=== PATIENT | female | born 1940 | race Caucasian/White ===

== ENCOUNTER 2016-09-06 17:09 | Inpatient (IN) | payer OTHER, MEDICARE ==
[~2016-09-06] VITALS: Ht 167.6 cm; Wt 49.0 kg
--- NOTE | ~2016-09-06 | EKG ---
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: Jason HDZ : 1940 Requested By: Sheldon Wheatley Order Number: [id number] MD: Chidi Reyes Measurements Intervals [place] Rate: 67 P: 75 GA: 167 QRS: 35 QRSD: 81 T: 70 QT: 424 QTc: 448 Interpretive Statements Sinus rhythm Probable anterior infarct, old Compared to ECG 09/09/2012 15:59:30 Myocardial infarct finding now present T-wave abnormality no longer present Electronically Signed On 09-07-2016 14:43:18 CDT by Chidi Reyes [email or web address] <ELECTRONICALLY SIGNED> By: Chidi Reyes MD 09/07/16 1443 1434 1434 Chidi Reyes MD /EPI
--- NOTE | ~2016-09-06 | 2DMMODE ---
[facility] [address] [facility] [place] [address] 2 D/M-MODE ECHOCARDIOGRAM Name: ENREYDA AZUL Room #: 212-P [facility] IN M.R.#: [id number] Admission: 09/06/16 Attend Phys: Sheldon Wheatley, Discharge: Date of : 38 Date of Service: 09/07/16 1016 Report #: [id number] THIS REPORT FOR: //name// APPROVED REPORT Study performed: 09/07/2016 07:16:20 EXAM: Comprehensive 2D, Doppler, and color-flow Echocardiogram Patient Location: Echo lab Room #: [facility] Status: routine Other Information Study Quality: Good Risk Factors: Cardiac Risk Factors: HTN Indications Hypertension/HDD 2D Dimensions RVDd: 35.69 mm LVEF(%): 62.84 (>50%) IVSd: 12.18 (7-11mm) LVOT Diam: 16.52 (18-24mm) LVDd: 40.35 mm PWd: 13.11 (7-11mm) Ascending Ao: 25.06 (22-36mm) LVDs: 26.81 (25-40mm) Aortic Root: 25.35 mm IVC: 22.00 mm Jones's LVEF: 62.84 % Volumes Left Atrial Volume (Systole) Single Plane 4CH: 48.63 mL Single Plane 2CH: 65.71 mL LA ESV Index: 40.00 mL/m2 Aortic Valve AoV Peak Jaycob.: 2.71 m/s AO Peak Gr.: 29.46 mmHg LVOT Max P.37 mmHg AO Mean Gr.: 18.95 mmHg LVOT Mean P.93 mmHg AO V2 Mean: 2.10 m/s LVOT Max V: 1.16 m/s AO V2 VTI: 72.63 cm LVOT Mean V: 0.81 m/s TIMA (VTI): 0.94 cm2 LVOT V1 VTI: 31.77 cm TIMA Vmax: 0.92 cm2 AI Vmax: 4.32 m/s SV (LVOT): 68.11 mL AI Rawlins: 2.15 m/s2 [facility] [place] [address] 2 D/M-MODE ECHOCARDIOGRAM Name: NEREYDA AZUL Room #: 212-P [facility] IN .R.#: [id number] Admission: 09/06/16 Attend Phys: Sheldon Wheatley, Discharge: Date of : 38 Date of Service: 09/07/16 1016 Report #: [id number] AI PHT: 581.86 ms Mitral Valve E/A Ratio: 1.0 MV Decel. Time: 263.95 ms MV E Max Jaycob.: 1.21 m/s MV A Jaycob.: 1.18 m/s MV PHT: 76.54 ms IVRT: 96.89 ms Pulmonary Valve PV Peak Jaycob.: 0.97 m/s PV Peak Gr.: 3.80 mmHg Pulmonary Vein P Vein S: 0.50 m/s P Vein A: 0.26 m/s P Vein D: 0.33 m/s P Vein A Dur.: 92.3 msec P Vein S/D Ratio: 1.52 Tricuspid Valve TR Peak Jaycob.: 2.56 m/s RAP Estimate: 10.00 mmHg TR Peak Gr.: 26.29 mmHg PA Pressure: 36.00 mmHg Left Ventricle The left ventricle is normal size. There is normal LV segmental wall motion. Mild concentric left ventricular hypertrophy. The left ventricular systolic function is normal. The left ventricular ejection fraction is within the normal range. LVEF is 60-65%. Grade I diastolic dysfunction Right Ventricle The right ventricle is normal size. The right ventricular systolic function is normal. Atria Left atrium is dilated. The right atrium size is normal. Aortic Valve Aortic valve is calcified. Mild aortic regurgitation. Moderate aortic stenosis with a maximum pressure gradient of 30 mmHg and mean pressure gradient of 19 mmHg. Mitral Valve Moderate mitral annular calcification Mild mitral regurgitation. No evidence of mitral valve stenosis. [facility] [address] [place] [address] 2 D/M-MODE ECHOCARDIOGRAM Name: NEREYDA AZUL Room #: 212-P [facility] IN M.R.#: [id number] Admission: 09/06/16 Attend Phys: Sheldon Wheatley, Discharge: Date of : 38 Date of Service: 09/07/16 1016 Report #: [id number] Tricuspid Valve The tricuspid valve is normal in structure. There is mild tricuspid regurgitation. The right atrial pressure is estimated at 10 mmHg. There is mild pulmonary hypertension. Pulmonic Valve The pulmonary valve is normal in structure. Trace pulmonic regurgitation. Great Vessels The aortic root is normal in size. IVC is dilated and collapses >50% with inspiration. Pericardium There is no pericardial effusion. <Conclusion> There is normal LV segmental wall motion. Mild concentric left ventricular hypertrophy. LVEF is 60-65%. Grade I diastolic dysfunction Left atrium is dilated. Aortic valve is calcified. Mild aortic regurgitation. Moderate aortic stenosis with a maximum pressure gradient of 30 mmHg and mean pressure gradient of 19 mmHg. Moderate mitral annular calcification. Mild mitral regurgitation Pulmonary artery pressure of 30-35mmHg There is no pericardial effusion. <ELECTRONICALLY SIGNED> By: Wolf Santos MD, FACC 09/07/16 1016 1016 1016 Wolf Santos MD, FACC /INF
[~2016-09-06 17:09] MED LIST: ADCIRCA20 MG PO; ALBUTEROL INH INH; AMBIEN 5 MG TABL5 M1 PO; AMBIEN 5 MG TABL5 MG PO; AMLODIPINE BESYL5 MG PO; ANUCORT-HC25 MG RECTAL; ASPIRIN325 PO; BENICAR HCT 401 EAC1 PO; BIOTENE DRY MO237 ML SWISH&SPIT; BRIMONIDINE TAR1 BO1 OPHTHALMIC; BYSTOLIC 5 MG5 M1 PO; CADUET 10 MG-11 EACH PO; CADUET 2.5 MG-1 EACH; CARAFATE 11 GM/10 M1 PO; CELEXA 10 MG TA10 M1 PO; CELLCEPT500 MG PO; CIPROFLOXACIN500 M1 PO; COLACE100 MG PO; DEXILANT60 MG PO; GABAPENTIN 100100 MG PO; GABAPENTIN100 MG PO; GAVISCON ES CH1 EAC1 PO; GAVISCON500 MG PO; IBUPROFEN200 M2 PO; KAPIDEX60 MG PO; LETAIRIS10 MG; LETAIRIS5 MG PO; LEVOXYL75 MCG PO; LIVALO2 MG PO; LUMIGAN2.5 M1 OPHTHALMIC; MELATONIN3 MG PO; MIRALAX255 GM PO; NEURONTIN 400400 M1 PO; NORCO 5-325 TA1 EACH PO; NORVASC2.5 MG PO; NYSTATIN 1100000 U/M SW&SWALLOW; PAXIL10 MG PO; PILOCARPINE HCL5 M1 PO; PLAVIX 75 MG TA75 M1 PO; PLAVIX 75 MG TA75 MG PO; PREMARIN0.625 MG PO; REGLAN 5 MG TAB5 M1 PO; RESTASIS1 EACH OPHTHALMIC; SYNTHROID75 MCG PO; VITAMIN D400 UNI1 PO; XALATAN2.5 ML OP
[2016-09-06 19:39] LABS: URINE BILIRUBIN NEGATIVE (Negative); URINE BLOOD NEGATIVE (Negative); URINE COLOR YELLOW; URINE GLUCOSE-RANDOM* NEGATIVE (Negative); URINE KETONES NEGATIVE (Negative); URINE LEUKOCYTES-REFLEX 1+ (Negative); URINE PROTEIN (DIPSTICK) NEGATIVE (Negative); URINE UROBILINOGEN 0.2 E.U./dl (0.2-1.0)
[2016-09-06 19:58] LABS: CASTS None Seen /LPF (None Seen); SQUAMOUS 0-3 Few /LPF (0-3)
[2016-09-06 19:59] VITALS: BP 137/61
[2016-09-06 19:59] LABS: CRYSTALS None Seen /LPF (None Seen); URINE RBC 0-2 Rare /HPF (0-2); URINE WBC-REFLEX 6-15 Few /HPF (0-5)
[2016-09-06 20:00] LABS: ABSOLUTE NEUTROPHILS 5.2 thou/uL (1.4-8.2); EOSINOPHILS 1.5 % (0.0-3.0); HEMATOCRIT 37.4 % (37.0-47.0); HEMOGLOBIN 12.7 gm/dL (12.0-15.0); LYMPHOCYTES 19.8 % (24.0-44.0); MCH 32.9 pg (26.0-34.0); MCV 96.7 fL (80.0-100.0); MONOCYTES 7.7 % (1.0-8.0); PLATELET COUNT 175 thou/uL (150-400); RBC 3.87 mil/uL (4.20-5.00); WBC 7.4 thou/uL (4.0-11.0)
[2016-09-06 20:01] LABS: MANUAL DIFF NO
[2016-09-06 20:09] LABS: ALBUMIN 3.8 g/dL (3.4-5.0); CREATININE 0.8 mg/dL (0.6-1.0); PHOSPHORUS 3.8 mg/dL (2.5-4.9); POTASSIUM 3.4 mmol/L (3.5-5.1)
[2016-09-07 00:02] VITALS: BP 133/51
[2016-09-07 03:05] LABS: ALBUMIN 3.5 g/dL (3.4-5.0); CALCIUM 8.8 mg/dL (8.5-10.1); CREATININE 0.7 mg/dL (0.6-1.0); PHOSPHORUS 4.1 mg/dL (2.5-4.9); POTASSIUM 3.7 mmol/L (3.5-5.1)
[2016-09-07 03:39] VITALS: BP 155/60
[2016-09-07 07:50] VITALS: BP 141/59
[2016-09-07 12:55] VITALS: BP 156/64
[2016-09-07 15:30] VITALS: BP 137/70; BP 167/70
[2016-09-07 20:12] VITALS: BP 152/47
[2016-09-08 04:54] VITALS: BP 110/63
[2016-09-08 07:28] LABS: TSH 1.565 uIU/mL (0.358-3.740)
[2016-09-08 08:00] VITALS: BP 136/58
[2016-09-08] MEDS ORDERED: BYSTOLIC 5 MG5 M1 PO (08:17)
[2016-09-08] MEDS ORDERED: CEFPODOXIME PR200 M1 PO (08:27)
[2016-09-08 11:40] VITALS: BP 136/58
[2016-09-08 16:53] VITALS: BP 136/58
== END 2016-09-08 14:40 | disposition home or self-care (01) | DRG 304 ==
LOC: 2N 17:09
PROVIDERS: Family Medicine; Internal Medicine Cardiovascular Disease
DX: I16.0 Hypertensive urgency (principal); G93.41 Metabolic encephalopathy; N39.0 Urinary tract infection, site not specified; F03.90 Unspecified dementia, unspecified severity, without behavioral disturbance, psychotic disturbance, mood disturbance, and anxiety; F32.9 Major depressive disorder, single episode, unspecified; E03.9 Hypothyroidism, unspecified; G47.00 Insomnia, unspecified; I27.2 Other secondary pulmonary hypertension; I35.0 Nonrheumatic aortic (valve) stenosis; H40.9 Unspecified glaucoma; G43.909 Migraine, unspecified, not intractable, without status migrainosus; I25.10 Atherosclerotic heart disease of native coronary artery without angina pectoris; I10 Essential (primary) hypertension; E78.00 Pure hypercholesterolemia, unspecified; M19.90 Unspecified osteoarthritis, unspecified site; I65.29 Occlusion and stenosis of unspecified carotid artery; K21.9 Gastro-esophageal reflux disease without esophagitis; Z86.73 Personal history of transient ischemic attack (TIA), and cerebral infarction without residual deficits; Z79.899 Other long term (current) drug therapy; Z88.2 Allergy status to sulfonamides; Z88.8 Allergy status to other drugs, medicaments and biological substances
CPT/HCPCS: 10081

== ENCOUNTER 2017-05-03 09:40 | Inpatient (IN) | payer OTHER, MEDICARE ==
[~2017-05-03] VITALS: Ht 165.1 cm; Wt 52.2 kg
--- NOTE | ~2017-05-03 | HC ---
[facility] [place] [address] [place] [address] CONSULTATION Name: NEREYDA AZUL Room #: 418-P ADM IN M.R.#: [id number] Admission: 05/03/17 Attend Phys: Baljit Riley Discharge: Date of : 39 Report #: [id number] THIS REPORT FOR: //name// CC: JESUS Mora DATE OF SERVICE: 05/03/2017 ATTENDING PHYSICIAN: Dr. Riley. CONSULTING PHYSICIAN Kalen REASON FOR CONSULTATION: Bowel obstruction. HISTORY OF PRESENT ILLNESS: This is a 76-year-old female patient who developed acute onset nausea and vomiting around 3:00 this morning. She vomited several times. She noted epigastric abdominal pain going straight through to her back. She denies fever or chills. She was seen in the [place] [facility] with these symptoms. She underwent a CT of the abdomen and pelvis earlier today showing a distended stomach and proximal small bowel consistent with a small-bowel obstruction. Possible wall thickening and edema with enhancement of the wall was also present. A small amount of free pelvic fluid was also seen. I have been asked to see the patient for further evaluation and treatment. Of note, the patient did vomit in the Emergency Room. PAST MEDICAL HISTORY: Significant for: 1. Pulmonary hypertension. 2. Scleroderma/Raynaud/CREST syndrome. 3. Hypothyroidism. 4. Gastroesophageal reflux disease. 5. Glaucoma. 6. Coronary artery disease. 7. Hypertension. PAST SURGICAL HISTORY: Includes laparoscopic cholecystectomy, hysterectomy, left carotid endarterectomy and previous PEG tube placement (no longer present). MEDICATIONS: Include Norvasc, Bystolic, cefpodoxime, proxetil, Synthroid, Letairis, Adcirca, multivitamin, folic acid, Dexilant, Alphagan and Celexa (please see electronic medical record for dosing details). ALLERGIES: No known drug allergies. FAMILY HISTORY: Reviewed and noncontributory to this hospitalization. [address] [address] CONSULTATION Name: NEREYDA AZUL Room #: 418-P [facility] IN .R.#: [id number] Admission: 05/03/17 Attend Phys: Baljit Riley Discharge: Date of : 39 Report #: [id number] SOCIAL HISTORY: The patient denies use of tobacco or illicit drugs. She drinks 2 glasses of wine per night. She is . REVIEW OF SYSTEMS: As per history of present illness. In addition: GENERAL: The patient denies fever or chills. HEENT: Denies changes in taste, vision, hearing, or smell. RESPIRATORY: Denies shortness of breath, COPD or asthma. CARDIOVASCULAR: Denies chest pain or palpitations. GASTROINTESTINAL: As per history of present illness. Denies bright red blood per rectum. GENITOURINARY: Denies dysuria, urgency or increased urinary frequency. MUSCULOSKELETAL: Denies myalgia or arthralgia. NEUROLOGIC: Denies headaches, numbness or tingling. PSYCHIATRIC: History of anxiety. Denies suicidal ideations. SKIN AND INTEGUMENTARY: Denies new skin lesions, rashes, or moles. ENDOCRINE: Denies polydipsia, polyuria, heat or cold intolerance. HEMATOLOGIC: Denies easy bleeding, bruising or anemia. All other review of systems is negative. PHYSICAL EXAMINATION: VITAL SIGNS: Temperature 97.7, blood pressure 122/71, pulse 78, respirations 14, and SpO2 100%. GENERAL: This is a 76-year-old female patient in no acute distress. She is hard of hearing. HEENT: Atraumatic, normocephalic with a hearing aid in place in her left ear. She has no scleral icterus. NECK: Supple, no appreciable lymphadenopathy. Trachea is midline. CHEST: Clear bilaterally. No crackles or wheezes. CARDIOVASCULAR: Regular rate and rhythm. ABDOMEN: Soft, but slightly distended. She has diffuse tenderness to palpation favoring the upper abdomen with no rebound or guarding. No palpable masses. Her PEG tube scar is well seen with a distinct indentation. Lap gaby scars are well healed. She has no associated hernias. GENITOURINARY: Normal external female genitalia. EXTREMITIES: No clubbing, cyanosis or edema. NEUROLOGIC: Cranial nerves 2-12 grossly intact. PSYCHIATRIC: Normal mood and affect. SKIN AND INTEGUMENTARY: No acute inflammatory changes, rashes or lesions are present. LABORATORY DATA: CBC shows a white blood cell count of 8.2, hemoglobin 12.6, hematocrit 37.6 and platelets 203. Electrolytes show sodium of 138, potassium 3.7, chloride 102, CO2 24, BUN 19, creatinine 0.8 and glucose 131. Transaminases were normal; alkaline phosphatase was mildly elevated at 118. Urinalysis showed trace protein, trace ketones and trace blood with no leukocyte [address] [address] CONSULTATION Name: NEREYDA AZUL Room #: 418-P [facility] IN M.R.#: [id number] Admission: 05/03/17 Attend Phys: Baljit Riley Discharge: Date of : 39 Report #: [id number] esterase or nitrites. RADIOLOGIC STUDIES: CT abdomen and pelvis findings are as noted above. IMPRESSION AND PLAN: This is a 76-year-old female patient with the above listed comorbidities who appears to have a small-bowel obstruction. We discussed the pathophysiology and natural history of bowel obstructions as well as treatment alternatives and surgical options. The patient would benefit from decompression with a nasogastric tube. Given her CT findings, I have also ordered a stat lactate to rule out ischemia. The patient expressed understanding of the plan. She is hopeful to avoid surgery. I sincerely appreciate the opportunity to participate in the care of this patient and will leave further recommendations and orders in the electronic medical record as appropriate. <ELECTRONICALLY SIGNED> By: Fred Higuera MD, FACS 05/04/17 0817 1546 2154 Fred Higuera MD, FACS /nt
--- NOTE | ~2017-05-03 | EKG ---
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
[~2017-05-03 09:40] MED LIST changes: +CEFPODOXIME PR200 M1 PO
[2017-05-03 09:41] VITALS: BP 227/74
[2017-05-03 10:03] LABS: ABSOLUTE NEUTROPHILS 7.2 thou/uL (1.4-8.2); BASOPHILS 0.5 % (0.0-2.0); HEMATOCRIT 37.6 % (37.0-47.0); HEMOGLOBIN 12.6 gm/dL (12.0-15.0); LYMPHOCYTES 8.6 % (24.0-44.0); MCH 31.5 pg (26.0-34.0); MCHC 33.4 g/dL (28.0-37.0); MCV 94.3 fL (80.0-100.0); MONOCYTES 3.4 % (1.0-8.0); PLATELET COUNT 203 thou/uL (150-400); POLYS 87.5 % (36.0-66.0); RBC 3.99 mil/uL (4.20-5.00); RDW 13.6 % (10.5-14.5); WBC 8.2 thou/uL (4.0-11.0)
[2017-05-03 10:18] LABS: ANION GAP 12 mmol/L (7-16); BUN 19 mg/dL (7-18); CALCIUM 9.5 mg/dL (8.5-10.1); CHLORIDE 102 mmol/L (98-107); CO2 24 mmol/L (21-32); CREATININE 0.8 mg/dL (0.6-1.0); GLUCOSE 131 mg/dL (74-106); POTASSIUM 3.7 mmol/L (3.5-5.1); SODIUM 138 mmol/L (136-145)
[2017-05-03 10:26] LABS: ALBUMIN 4.3 g/dL (3.4-5.0); LIPASE 139 U/L (73-393); SGOT 22 U/L (15-37); SGPT 18 U/L (30-65); TOTAL BILIRUBIN 0.5 mg/dL (<0.1-1.0); TOTAL PROTEIN 7.8 g/dL (6.4-8.2); TROPONIN-I < 0.04 ng/mL (<0.06)
[2017-05-03 10:35] LABS: URINE BILIRUBIN NEGATIVE (Negative); URINE BLOOD TRACE (Negative); URINE CLARITY CLEAR; URINE COLOR YELLOW; URINE GLUCOSE-RANDOM* NEGATIVE (Negative); URINE KETONES TRACE (Negative); URINE LEUKOCYTES-REFLEX NEGATIVE (Negative); URINE NITRITE-REFLEX NEGATIVE (Negative); URINE PROTEIN (DIPSTICK) TRACE (Negative); URINE UROBILINOGEN 0.2 E.U./dl (0.2-1.0)
[2017-05-03] MEDS ORDERED: LETAIRIS5 MG PO (10:41)
[2017-05-03] MEDS ORDERED: XIFAXAN550 M1 PO (10:41)
[2017-05-03] MEDS ORDERED: ADCIRCA20 MG PO (10:41)
[2017-05-03] MEDS ORDERED: CENTRUM SILVER1 EAC4 PO (10:41)
[2017-05-03] MEDS ORDERED: DEXILANT30 MG PO (10:42)
[2017-05-03] MEDS ORDERED: FOLIC ACID1 MG PO (10:42)
[2017-05-03] MEDS ORDERED: ALPHAGAN P5 ML OPHTHALMIC (10:42)
[2017-05-03 14:25] VITALS: BP 160/58
[2017-05-03 14:47] VITALS: BP 122/71
[2017-05-03 16:25] VITALS: BP 156/61
[2017-05-03 19:36] VITALS: BP 158/58
[2017-05-04 04:40] VITALS: BP 125/53
[2017-05-04 05:15] LABS: CALCIUM 8.2 mg/dL (8.5-10.1); CREATININE 0.9 mg/dL (0.6-1.0); POTASSIUM 3.1 mmol/L (3.5-5.1)
[2017-05-04 05:20] LABS: ALBUMIN 3.3 g/dL (3.4-5.0); TOTAL BILIRUBIN 0.4 mg/dL (<0.1-1.0)
[2017-05-04 07:15] VITALS: BP 148/58
[2017-05-04 15:23] VITALS: BP 181/62
[2017-05-04 19:18] VITALS: BP 188/62
[2017-05-04 20:54] LABS: URINE BILIRUBIN NEGATIVE (Negative); URINE BLOOD 2+ (Negative); URINE CLARITY CLEAR; URINE COLOR YELLOW; URINE GLUCOSE-RANDOM* NEGATIVE (Negative); URINE KETONES NEGATIVE (Negative); URINE NITRITE-REFLEX NEGATIVE (Negative); URINE PROTEIN (DIPSTICK) NEGATIVE (Negative); URINE UROBILINOGEN 0.2 E.U./dl (0.2-1.0)
[2017-05-04 20:56] LABS: URINE LEUKOCYTES-REFLEX 1+ (Negative)
[2017-05-04 20:57] LABS: SQUAMOUS 0-3 Few /LPF (0-3)
[2017-05-04 20:58] LABS: CASTS None Seen /LPF (None Seen); CRYSTALS None Seen /LPF (None Seen); URINE WBC-REFLEX 6-15 Few /HPF (0-5)
[2017-05-05 04:40] VITALS: BP 165/66
[2017-05-05 04:53] LABS: ALBUMIN 3.1 g/dL (3.4-5.0); CREATININE 0.6 mg/dL (0.6-1.0); PHOSPHORUS 2.5 mg/dL (2.5-4.9); TOTAL BILIRUBIN 0.4 mg/dL (<0.1-1.0)
[2017-05-05 08:15] VITALS: BP 174/55
[2017-05-05 15:53] VITALS: BP 178/65
[2017-05-05 19:20] VITALS: BP 185/75
[2017-05-06 04:15] LABS: ALBUMIN 3.2 g/dL (3.4-5.0); CALCIUM 8.7 mg/dL (8.5-10.1); CREATININE 0.7 mg/dL (0.6-1.0); MAGNESIUM 1.7 mg/dL (1.8-2.4); TOTAL BILIRUBIN 0.4 mg/dL (<0.1-1.0); TOTAL PROTEIN 6.4 g/dL (6.4-8.2)
[2017-05-06 04:21] VITALS: BP 171/60
[2017-05-06 08:20] VITALS: BP 154/47
[2017-05-06] MEDS ORDERED: CEFPODOXIME PR200 M1 PO (09:24)
[2017-05-06 11:12] VITALS: BP 154/47
[2017-05-06 11:18] VITALS: BP 154/47
== END 2017-05-06 16:10 | disposition home health service (06) | DRG 389 ==
LOC: ER 09:40 → 4E 12:26 → EROBS 12:26 → 4E 15:20
PROVIDERS: Hospitalist; Physician Assistant
DX: K56.609 Unspecified intestinal obstruction, unspecified as to partial versus complete obstruction (principal); I16.1 Hypertensive emergency; I27.20 Pulmonary hypertension, unspecified; E03.9 Hypothyroidism, unspecified; K21.9 Gastro-esophageal reflux disease without esophagitis; H40.9 Unspecified glaucoma; G43.909 Migraine, unspecified, not intractable, without status migrainosus; I25.10 Atherosclerotic heart disease of native coronary artery without angina pectoris; I10 Essential (primary) hypertension; I73.00 Raynaud's syndrome without gangrene; M34.1 CR(E)ST syndrome; K52.9 Noninfective gastroenteritis and colitis, unspecified; E87.6 Hypokalemia; Z79.899 Other long term (current) drug therapy; Z86.73 Personal history of transient ischemic attack (TIA), and cerebral infarction without residual deficits; Z90.710 Acquired absence of both cervix and uterus; Z90.49 Acquired absence of other specified parts of digestive tract; Z93.1 Gastrostomy status
CPT/HCPCS: 10084

== ENCOUNTER 2017-08-29 17:08 | Inpatient (IN) | payer OTHER, MEDICARE ==
[~2017-08-29] VITALS: Ht 165.1 cm; Wt 49.9 kg
[~2017-08-29 17:08] MED LIST changes: +ALPHAGAN P5 ML OPHTHALMIC; +CENTRUM SILVER1 EAC4 PO; +DEXILANT30 MG PO; +FOLIC ACID1 MG PO; +XIFAXAN550 M1 PO
[2017-08-29 17:12] VITALS: BP 176/57
[2017-08-29 18:05] LABS: URINE BILIRUBIN NEGATIVE (Negative); URINE BLOOD TRACE (Negative); URINE CLARITY SL CLOUDY; URINE COLOR YELLOW; URINE GLUCOSE-RANDOM* NEGATIVE (Negative); URINE KETONES NEGATIVE (Negative); URINE PROTEIN (DIPSTICK) NEGATIVE (Negative); URINE SPECIFIC GRAVITY 1.015 (1.005-1.035); URINE UROBILINOGEN 0.2 E.U./dl (0.2-1.0)
[2017-08-29 18:07] LABS: URINE LEUKOCYTES-REFLEX 1+ (Negative); URINE NITRITE-REFLEX POSITIVE (Negative)
[2017-08-29 18:15] LABS: BACTERIA-REFLEX >30 Many /HPF (None Seen); URINE WBC-REFLEX 6-15 Few /HPF (0-5)
[2017-08-29 18:16] LABS: CASTS None Seen /LPF (None Seen); CRYSTALS None Seen /LPF (None Seen); SQUAMOUS 0-3 Few /LPF (0-3); URINE RBC 0-2 Rare /HPF (0-2)
[2017-08-29 18:59] LABS: HEMOGLOBIN 10.1 gm/dL (12.0-15.0); RBC 3.31 mil/uL (4.20-5.00)
[2017-08-29 19:01] LABS: ABSOLUTE NEUTROPHILS 7.3 thou/uL (1.4-8.2); BASOPHILS 0.1 % (0.0-2.0); HEMATOCRIT 30.4 % (37.0-47.0); LYMPHOCYTES 4.8 % (24.0-44.0); MCH 30.7 pg (26.0-34.0); MCHC 33.4 g/dL (28.0-37.0); MCV 91.9 fL (80.0-100.0); MONOCYTES 8.6 % (1.0-8.0); PLATELET COUNT 137 thou/uL (150-400); POLYS 86.5 % (36.0-66.0); RDW 14.7 % (10.5-14.5); WBC 8.4 thou/uL (4.0-11.0)
[2017-08-29 19:03] LABS: CALCIUM 8.8 mg/dL (8.5-10.1); POTASSIUM 3.3 mmol/L (3.5-5.1)
[2017-08-29 19:09] LABS: TOTAL BILIRUBIN 0.8 mg/dL (<0.1-1.0); TOTAL PROTEIN 7.3 g/dL (6.4-8.2)
[2017-08-29 19:28] VITALS: BP 176/57
[2017-08-29 20:59] VITALS: BP 149/54
[2017-08-29 22:00] VITALS: BP 149/60
[2017-08-30 04:00] VITALS: BP 140/53
[2017-08-30 05:38] LABS: CALCIUM 8.7 mg/dL (8.5-10.1); POTASSIUM 3.6 mmol/L (3.5-5.1); TROPONIN-I 0.05 ng/mL (<0.06)
[2017-08-30 07:35] VITALS: BP 117/45
[2017-08-30 15:30] VITALS: BP 173/64
[2017-08-30 20:26] VITALS: BP 167/53
[2017-08-31 04:45] VITALS: BP 148/58
[2017-08-31 07:44] VITALS: BP 139/48
[2017-08-31] MEDS ORDERED: CEFUROXIME250 MG PO (09:40)
[2017-08-31 10:40] VITALS: BP 139/48
[2017-08-31 11:56] VITALS: BP 139/48
== END 2017-08-31 13:40 | disposition home health service (06) | DRG 689 ==
LOC: ER 17:08 → EROBS 19:23 → 4N 19:23
PROVIDERS: Emergency Medicine; Nurse Practitioner Acute Care; Physician Assistant
DX: N39.0 Urinary tract infection, site not specified (principal); G92 Toxic encephalopathy; E44.0 Moderate protein-calorie malnutrition; Z68.1 Body mass index [BMI] 19.9 or less, adult; E87.6 Hypokalemia; B96.20 Unspecified Escherichia coli [E. coli] as the cause of diseases classified elsewhere; R26.9 Unspecified abnormalities of gait and mobility; E03.9 Hypothyroidism, unspecified; I10 Essential (primary) hypertension; I25.10 Atherosclerotic heart disease of native coronary artery without angina pectoris; K21.9 Gastro-esophageal reflux disease without esophagitis; Z86.73 Personal history of transient ischemic attack (TIA), and cerebral infarction without residual deficits; Z90.710 Acquired absence of both cervix and uterus; Z90.49 Acquired absence of other specified parts of digestive tract; Z88.1 Allergy status to other antibiotic agents; Z95.5 Presence of coronary angioplasty implant and graft; Z79.899 Other long term (current) drug therapy; Z79.2 Long term (current) use of antibiotics
CPT/HCPCS: 10091

== ENCOUNTER 2017-09-25 20:47 | Inpatient (IN) | payer OTHER, MEDICARE ==
[~2017-09-25] VITALS: Ht 165.1 cm; Wt 51.7 kg
--- NOTE | ~2017-09-25 | EKG ---
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: antonia : 1940 Requested By: Hernán Gonzalez Order Number: [id number] MD: Wolf Santos Measurements Intervals [place] Rate: 54 P: 5 MA: 164 QRS: 49 QRSD: 80 T: 72 QT: 466 QTc: 442 Interpretive Statements Sinus rhythm Nonspecific ST segment abnormality Compared to ECG 05/03/2017 10:08:15 No significant changes Electronically Signed On 09-27-2017 7:35:57 CDT by Wolf Santos [email or web address] <ELECTRONICALLY SIGNED> By: Wolf Santos MD, [facility] 09/27/17 0735 07 07 Wolf Santos MD, [facility] /EPI
[~2017-09-25 20:47] MED LIST changes: +CEFUROXIME250 MG PO
[2017-09-25 20:49] VITALS: BP 122/44
[2017-09-25 21:18] LABS: ABSOLUTE NEUTROPHILS 3.1 thou/uL (1.4-8.2); BASOPHILS 0.8 % (0.0-2.0); EOSINOPHILS 1.8 % (0.0-3.0); HEMATOCRIT 31.3 % (37.0-47.0); HEMOGLOBIN 10.4 gm/dL (12.0-15.0); LYMPHOCYTES 30.8 % (24.0-44.0); MCH 30.3 pg (26.0-34.0); MCHC 33.2 g/dL (28.0-37.0); MCV 91.2 fL (80.0-100.0); MONOCYTES 9.3 % (1.0-8.0); PLATELET COUNT 184 thou/uL (150-400); POLYS 57.3 % (36.0-66.0); RBC 3.43 mil/uL (4.20-5.00); RDW 15.9 % (10.5-14.5); WBC 5.4 thou/uL (4.0-11.0)
[2017-09-25 21:26] LABS: ANION GAP 9 mmol/L (7-16); BUN 21 mg/dL (7-18); CHLORIDE 106 mmol/L (98-107); CO2 20 mmol/L (21-32); CREATININE 1.1 mg/dL (0.6-1.0); GLUCOSE 114 mg/dL (74-106); POTASSIUM 3.8 mmol/L (3.5-5.1); SODIUM 135 mmol/L (136-145)
[2017-09-25 21:31] LABS: BE(vivo) -7.8 mmol/L (-2 to +3); HCO3 15.8 mmol/L (22.0-26.0); PCO2 26.7 mmHg (35.0-45.0); PO2 153.2 mmHg (80.0-100.0); pH 7.391 (7.360-7.450)
[2017-09-25 21:35] LABS: ALBUMIN 3.9 g/dL (3.4-5.0); SGOT 17 U/L (15-37); SGPT 16 U/L (30-65); TOTAL BILIRUBIN 0.2 mg/dL (<0.1-1.0); TOTAL PROTEIN 7.3 g/dL (6.4-8.2); TROPONIN-I <0.06 ng/mL (<0.06)
[2017-09-26] MEDS ORDERED: PROTONIX40 M1 PO (04:05)
[2017-09-26] MEDS ORDERED: LETAIRIS10 MG PO (04:11)
[2017-09-26] MEDS ORDERED: PRAVACHOL20 MG PO (04:12)
[2017-09-26 04:22] VITALS: BP 142/46
[2017-09-26 05:48] LABS: URINE BILIRUBIN NEGATIVE (Negative); URINE BLOOD NEGATIVE (Negative); URINE CLARITY CLEAR; URINE COLOR YELLOW; URINE GLUCOSE-RANDOM* NEGATIVE (Negative); URINE KETONES NEGATIVE (Negative); URINE LEUKOCYTES-REFLEX NEGATIVE (Negative); URINE NITRITE-REFLEX NEGATIVE (Negative); URINE PROTEIN (DIPSTICK) NEGATIVE (Negative); URINE SPECIFIC GRAVITY <= 1.005 (1.005-1.035); URINE UROBILINOGEN 0.2 E.U./dl (0.2-1.0)
[2017-09-26 07:15] VITALS: BP 167/34
[2017-09-26 20:53] VITALS: BP 187/50
[2017-09-27 05:46] VITALS: BP 152/47
[2017-09-27 07:30] VITALS: BP 164/57
[2017-09-27 08:54] VITALS: BP 164/57
== END 2017-09-27 09:28 | disposition home or self-care (01) | DRG 312 ==
LOC: ER 20:47 → EROBS 23:22 → 4E 23:22 → ENTRNSPT 09-27 08:59 → EDTRNSPTSTS 09-27 09:01 → 4E 09-27 09:28
PROVIDERS: Physician Assistant
DX: R55 Syncope and collapse (principal); N39.0 Urinary tract infection, site not specified; E46 Unspecified protein-calorie malnutrition; Z68.1 Body mass index [BMI] 19.9 or less, adult; I73.00 Raynaud's syndrome without gangrene; E03.9 Hypothyroidism, unspecified; K21.9 Gastro-esophageal reflux disease without esophagitis; H40.9 Unspecified glaucoma; G43.909 Migraine, unspecified, not intractable, without status migrainosus; I25.10 Atherosclerotic heart disease of native coronary artery without angina pectoris; N18.9 Chronic kidney disease, unspecified; I27.20 Pulmonary hypertension, unspecified; I35.0 Nonrheumatic aortic (valve) stenosis; M62.84 Sarcopenia; I12.9 Hypertensive chronic kidney disease with stage 1 through stage 4 chronic kidney disease, or unspecified chronic kidney disease; I65.29 Occlusion and stenosis of unspecified carotid artery; F03.90 Unspecified dementia, unspecified severity, without behavioral disturbance, psychotic disturbance, mood disturbance, and anxiety; Z86.73 Personal history of transient ischemic attack (TIA), and cerebral infarction without residual deficits; Z95.5 Presence of coronary angioplasty implant and graft; Z90.710 Acquired absence of both cervix and uterus; Z90.49 Acquired absence of other specified parts of digestive tract; Z79.899 Other long term (current) drug therapy
CPT/HCPCS: 10183

== ENCOUNTER 2018-02-04 03:54 | Emergency (ER) | payer OTHER, MEDICARE ==
[~2018-02-04] VITALS: Ht 165.1 cm; Wt 54.4 kg
--- NOTE | ~2018-02-04 | EKG ---
[place] [address] [facility] [place] [address] ELECTROCARDIOGRAM REPORT Name: NEREYDA AZUL [id number] Admission: 02/04/18 Attend Phys: Discharge: 02/04/18 Date of : 38 Report #: [id number] THIS REPORT FOR: //name// [facility] ED Test Date: 2018-02-04 Test Time: 04:03:47 Pat Name: NEREYDA AZUL Department: Room: Gender: F Torts Law Professor: CONNIE : 1940 Requested By: Barry Sewell Order Number: [id number] MD: Wolf Santos Measurements Intervals [place] Rate: 56 P: 27 [place]: 156 QRS: 57 QRSD: 89 T: 76 QT: 459 QTc: 444 Interpretive Statements Sinus bradycardia Nonspecific ST segment abnormality Compared to ECG 09/25/2017 21:08:38 No significant change was found Electronically Signed On 02-04-2018 8:11:15 EXPLORATION GEOLOGIST by Wolf Santos [email or web address] <ELECTRONICALLY SIGNED> By: Wolf Santos MD, [facility] 02/04/1811 0403 2 Wolf Santos MD, FACC /EPI
[~2018-02-04 03:54] MED LIST changes: +LETAIRIS10 MG PO; +PRAVACHOL20 MG PO; +PROTONIX40 M1 PO
[2018-02-04 04:14] LABS: ABSOLUTE NEUTROPHILS 5.5 thou/uL (1.4-8.2); BASOPHILS 0.8 % (0.0-2.0); EOSINOPHILS 1.4 % (0.0-3.0); HEMATOCRIT 27.2 % (37.0-47.0); HEMOGLOBIN 9.1 gm/dL (12.0-15.0); LYMPHOCYTES 21.4 % (24.0-44.0); MCH 28.1 pg (26.0-34.0); MCHC 33.5 g/dL (28.0-37.0); PLATELET COUNT 221 thou/uL (150-400); POLYS 67.4 % (36.0-66.0); RBC 3.24 mil/uL (4.20-5.00); RDW 15.9 % (10.5-14.5); WBC 8.2 thou/uL (4.0-11.0)
[2018-02-04 04:25] LABS: ANION GAP 15 mmol/L (7-16); BUN 19 mg/dL (7-18); CHLORIDE 107 mmol/L (98-107); CO2 20 mmol/L (21-32); CREATININE 1.1 mg/dL (0.6-1.0); GLUCOSE 163 mg/dL (74-106); POTASSIUM 3.4 mmol/L (3.5-5.1); SODIUM 142 mmol/L (136-145)
[2018-02-04 04:34] LABS: TROPONIN-I <0.06 ng/mL (<0.06)
[2018-02-04 06:50] VITALS: BP 156/37
== END 2018-02-04 06:51 | disposition home or self-care (01) ==
LOC: ER 03:54
PROVIDERS: Emergency Medicine
DX: R07.89 Other chest pain (principal); I10 Essential (primary) hypertension; E03.9 Hypothyroidism, unspecified; K21.9 Gastro-esophageal reflux disease without esophagitis; Z86.73 Personal history of transient ischemic attack (TIA), and cerebral infarction without residual deficits; I25.10 Atherosclerotic heart disease of native coronary artery without angina pectoris; Z90.710 Acquired absence of both cervix and uterus; Z90.49 Acquired absence of other specified parts of digestive tract

== ENCOUNTER 2018-02-04 09:46 | Inpatient (IN) | payer OTHER, MEDICARE ==
[~2018-02-04] VITALS: Ht 165.1 cm; Wt 54.6 kg
--- NOTE | ~2018-02-04 | HC ---
[facility] [address] [place] [place] [address] CONSULTATION Name: NEREYDA AZUL Room #: 459-P ADM IN M.R.#: [id number] Admission: 02/04/18 Attend Phys: Lex Brunner MD Discharge: Date of : 39 Report #: [id number] THIS REPORT FOR: //name// CC: NO PCP Lex Brunner DATE OF SERVICE: 02/09/2018 CHIEF COMPLAINT: Left knee pain and swelling. HISTORY OF PRESENT ILLNESS: This very frail 77-year-old female with multiple medical problems including scleroderma, chronic degenerative osteoarthritis and chronic GI and cardiac issues. She is admitted for abdominal pain and apparently had evidence of small-bowel obstruction, which is being managed conservatively. While here, she has developed a bit more pain and swelling involving the left knee. She states today those symptoms have improved significantly. Objectively, she is frail and mildly confused and has severe hearing deficit, making our discussion difficult. In general, however, she seems to understand the situation. She states she is feeling better with regard to her left knee, noting rather minimal discomfort. Objectively, the left knee demonstrates a moderate knee effusion, but no significant redness or warmth. There is no sign of infection nor marked inflammation. Findings are most suggestive of moderate degenerative osteoarthritis or inflammatory arthritis with a reactive joint effusion. X-rays of left knee reveal obvious 3 compartment degenerative osteoarthritis with loss of joint space and significant spurring with multiple loose bodies. There is no evidence of fracture. In summary, I have had a lengthy discussion with the patient noting that her knee symptoms are probably the result of both chronic inflammatory arthritis and degenerative osteoarthritis. I have explained that her current symptoms may have simply flared up as a result of her other medical issues or some mechanical stress on the joint. I would favor conservative management, which might include joint aspiration and injection, which I have offered today. She states that her knee actually feels much better, and she would prefer to avoid any aspiration or injection at this time. Consequently, she feels her symptoms are adequately controlled with conservative management and limited activity. Therefore, we will continue to monitor. I am certainly happy to see her back while she remains in the hospital or see her in my office after her discharge if [facility] [address] [place] [address] CONSULTATION Name: NEREYDA AZUL Room #: 459-P ADM IN .R.#: [id number] Admission: 02/04/18 Attend Phys: Lex Brunner MD Discharge: Date of : 39 Report #: [id number] necessary. I would anticipate joint aspiration and joint injection would be the best option if symptoms should become more severe. <ELECTRONICALLY SIGNED> By: Fredrick Steele MD 02/10/18 1119 0919 2455 Fredrick Steele MD /nt
--- NOTE | ~2018-02-04 | PATH ---
[facility] [address] [place] [address] PATHOLOGY RPT PROCEDURE Name: NEREYDA MISHRA Room #: 459-P DIS IN M.R.#: [id number] Admission: 02/04/18 Date of : 38 Discharge: 02/10/18 Report #: [id number] Path Case #: [id number] [facility] Accession Number: [id number] . 01 Material submitted: . PART A: BX OF GASTRIC R/O H. PYLORI AND GASTRITIS PART B: BX OF ESOPH. R/O EOE . 01 Clinical history: . Pre-OP DX: Abdominal pain Post-OP DX: Gastritis, please refer to requisition for additional information . 02 Diagnosis: A. Gastric mucosa, gastritis, endoscopic biopsy: - Svyg-lx-vwndifqx chronic active gastritis with focal intestinal metaplasia. - Negative for atrophy or dysplasia. - Two fragments showing dilated fundic glands compatible with fundic gland polyps without any dysplasia. - Mild number of Helicobacter pylori organisms present on well-controlled immunohistochemical stain. . B. Squamous mucosa, esophagus, rule out eosinophilic esophagitis, endoscopic biopsy: - Mild esophagitis showing features of reflux esophagitis. - No increase in intraepithelial eosinophils. - Negative for intestinal metaplasia or dysplasia. . (IUV:mml; 02/11/18) [facility]/02/11/2018 . 02 Electronically signed: . Lesly London MD, Pathologist NPI- [id number] . 01 Gross description: . A. Received in formalin labeled "Nereyda Mishra, BEN of gastric, rule out H. pylori, gastritis," are 5 segments of hartley soft tissue measuring 0.9 x 0.8 x 0.2 cm in aggregate dimensions and ranging from 0.3 to 0.5 cm in maximum dimension. The specimen is submitted entirely in cassette A1. . B. Received in formalin labeled "Nereyda MishraBEN of esophagus, rule out EOE," are 2 segments of hartley soft tissue measuring 0.9 x 0.2 x 0.1 cm in aggregate dimensions and ranging from 0.4 to 0.5 cm in maximum dimension. The specimen is submitted entirely in cassette B1. (TSD; 02/08/2018) [place] [address] PATHOLOGY RPT PROCEDURE Name: NEREYDA MISHRA Room #: 459-P DIS IN M.R.#: [id number] Admission: 02/04/18 Date of : 38 Discharge: 02/10/18 Report #: [id number] Path Case #: [id number] TOB/TOB . 02 Pathologist provided ICD-10: K29.50, K31.7, B96.81, K21.0 . 02 CPT . 902675, 397856, W16466 Specimen Comment: A courtesy copy of this report has been sent to Specimen Comment: [phone], . Specimen Comment: Report sent to / DR ARMENDARIZ Performed at: [address], [place] [id number] MD Mukul Mckeon MD Phone: [phone] Performed at: [address] [id number] MD Lesly London MD Phone: [phone]
--- NOTE | ~2018-02-04 | EKG ---
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
--- NOTE | ~2018-02-04 | EKG ---
[address] [address] ELECTROCARDIOGRAM REPORT Name: NEREYDA AZUL Room #: 170-11 ADM IN M.R.#: [id number] Admission: 02/04/18 Attend Phys: Lex Brunner MD Discharge: Date of : 38 Report #: [id number] THIS REPORT FOR: //name// [facility] ED Test Date: 2018-02-04 Test Time: 15:47:48 Pat Name: NEREYDA AZUL Department: Room: 170 11 Gender: F Cooler Service Supervisor: CALI : 1940 Requested By: Claudia Romano Order Number: [id number] MD: Chidi Reyes Measurements Intervals [place] Rate: 71 P: 60 [place]: 171 QRS: 18 QRSD: 96 T: 71 QT: 417 QTc: 454 Interpretive Statements Sinus rhythm Compared to ECG 02/04/2018 10:07:20 ST (T wave) deviation no longer present Electronically Signed On 02-04-2018 16:42:55 MILL PLATFORM SUPERVISOR by Chidi Reyes [email or web address] <ELECTRONICALLY SIGNED> By: Chidi Reyes MD 02/04/18 1642 1547 1547 Chidi Reyes MD /ROXANNE
--- NOTE | ~2018-02-04 | 2DMMODE ---
[facility] [address] [place] [address] 2 D/M-MODE ECHOCARDIOGRAM Name: NEREYDA AZUL Room #: 170-11 ADM IN M.R.#: [id number] Admission: 02/04/18 Attend Phys: Lex Brunner MD Discharge: Date of : 38 Date of Service: 02/04/18 1652 Report #: [id number] THIS REPORT FOR: //name// APPROVED REPORT Study performed: 02/04/2018 14:40:54 EXAM: Comprehensive 2D, Doppler, and color-flow Echocardiogram Patient Location: ER Room #: 11 Status: routine BSA: 1.59 HR: 70 bpm BP: 185/51 mmHg Rhythm: NSR Other Information Study Quality: Good Indications Aortic Valve Disease Chest Pain Hypertension/HDD 2D Dimensions RVDd: 35.79 mm IVSd: 13.70 (7-11mm) LVOT Diam: 17.47 (18-24mm) LVDd: 31.61 mm PWd: 13.06 (7-11mm) Ascending Ao: 26.45 (22-36mm) LVDs: 20.71 (25-40mm) Aortic Root: 29.51 mm IVC: 19.00 mm Volumes Left Atrial Volume (Systole) Single Plane 4CH: 72.17 mL Single Plane 2CH: 69.23 mL LA ESV Index: 50.00 mL/m2 Aortic Valve AoV Peak Jaycob.: 3.31 m/s AO Peak Gr.: 43.82 mmHg LVOT Max P.02 mmHg AO Mean Gr.: 26.17 mmHg LVOT Mean P.67 mmHg AO V2 Mean: 2.44 m/s LVOT Max V: 1.12 m/s AO V2 VTI: 87.72 cm LVOT Mean V: 0.75 m/s TIMA (VTI): 0.73 cm2 LVOT V1 VTI: 26.81 cm TIMA Vmax: 0.81 cm2 [facility] [place] [address] 2 D/M-MODE ECHOCARDIOGRAM Name: NEREYDA AZUL Room #: [facility] ADM IN M.R.#: [id number] Admission: 02/04/18 Attend Phys: Lex Brunner MD Discharge: Date of : 38 Date of Service: 02/04/18 1652 Report #: [id number] AI Vmax: 4.31 m/s SV (LVOT): 64.25 mL AI [place]urel: 2.91 m/s2 AI PHT: 430.54 ms Mitral Valve E/A Ratio: 1.1 MV Decel. Time: 235.47 ms MV E Max Jaycob.: 1.35 m/s MV A Jaycob.: 1.20 m/s MV PHT: 68.29 ms IVRT: 110.73 ms Pulmonary Valve PV Peak Jaycob.: 1.03 m/s PV Peak Gr.: 4.26 mmHg Pulmonary Vein P Vein S: 0.59 m/s P Vein A: 0.24 m/s P Vein D: 0.22 m/s P Vein A Dur.: 124.6 msec P Vein S/D Ratio: 2.68 Tricuspid Valve TR Peak Jaycob.: 3.05 m/s TR Peak Gr.: 37.25 mmHg PA Pressure: 42.00 mmHg Left Ventricle The left ventricle is normal size. There is normal LV segmental wall motion. Mild concentric left ventricular hypertrophy. The left ventricular systolic function is normal. The left ventricular ejection fraction is within the normal range. LVEF is 60-65%. Grade II - pseudonormal filling dynamics. Right Ventricle The right ventricle is normal size. The right ventricular systolic function is normal. Atria Left atrium is dilated. Right atrium is at the upper limits of normal. Aortic Valve Aortic valve is calcified. Mild aortic regurgitation. Moderate aortic stenosis. Mitral Valve Moderate mitral annular calcification Mild [place] [address] 2 D/M-MODE ECHOCARDIOGRAM Name: NEREYDA AZUL Room #: 170-11 ADM IN M.R.#: [id number] Admission: 02/04/18 Attend Phys: Lex Brunner MD Discharge: Date of : 38 Date of Service: 02/04/18 1652 Report #: [id number] evidence of mitral valve stenosis. Tricuspid Valve The tricuspid valve is normal in structure. There is trace to mild tricuspid regurgitation. Estimated PAP 42 mmHg There is moderate pulmonary hypertension. Pulmonic Valve The pulmonary valve is normal in structure. Trace pulmonic regurgitation. Great Vessels The aortic root is normal in size. IVC is normal in size and collapses >50% with inspiration. Pericardium There is no pericardial effusion. <Conclusion> The left ventricular systolic function is normal. There is normal LV segmental wall motion. Mild LVH LVEF is 60-65%. Moderate diastolic dysfunction Left atrium is dilated. Aortic valve is calcified. Moderate aortic stenosis. Mild aortic regurgitation. Moderate mitral annular calcification. Mild mitral regurgitation. There is trace to mild tricuspid regurgitation. Estimated pulmonary artery pressure of 42 mmHg There is no pericardial effusion. <ELECTRONICALLY SIGNED> By: Wolf Santos MD, FACC 02/04/181651 51 51 Wolf Santos MD, FACC /INF
[2018-02-04 09:46] VITALS: BP 131/41
[2018-02-04 10:29] LABS: ABSOLUTE NEUTROPHILS 6.7 thou/uL (1.4-8.2); BASOPHILS 0.5 % (0.0-2.0); EOSINOPHILS 0.2 % (0.0-3.0); HEMATOCRIT 29.7 % (37.0-47.0); HEMOGLOBIN 9.7 gm/dL (12.0-15.0); LYMPHOCYTES 11.6 % (24.0-44.0); MCH 27.7 pg (26.0-34.0); MCHC 32.6 g/dL (28.0-37.0); MONOCYTES 8.1 % (1.0-8.0); PLATELET COUNT 185 thou/uL (150-400); POLYS 79.6 % (36.0-66.0); RBC 3.49 mil/uL (4.20-5.00); RDW 16.3 % (10.5-14.5); WBC 8.4 thou/uL (4.0-11.0)
[2018-02-04 10:38] LABS: ANION GAP 15 mmol/L (7-16); BUN 20 mg/dL (7-18); CALCIUM 9.3 mg/dL (8.5-10.1); CHLORIDE 106 mmol/L (98-107); CO2 21 mmol/L (21-32); GLUCOSE 112 mg/dL (74-106); POTASSIUM 4.1 mmol/L (3.5-5.1); SODIUM 142 mmol/L (136-145)
[2018-02-04 10:47] LABS: TROPONIN-I <0.06 ng/mL (<0.06)
[2018-02-04 12:55] VITALS: BP 185/51
[2018-02-04 18:27] VITALS: BP 125/42
[2018-02-04 18:55] VITALS: BP 142/50
[2018-02-05 04:20] VITALS: BP 153/62
[2018-02-05 07:30] VITALS: BP 141/51
[2018-02-05 13:30] VITALS: BP 148/56
[2018-02-05 19:09] VITALS: BP 155/51
[2018-02-06 03:28] VITALS: BP 147/80
[2018-02-06 04:35] LABS: ABSOLUTE NEUTROPHILS 4.5 thou/uL (1.4-8.2); BASOPHILS 0.3 % (0.0-2.0); EOSINOPHILS 1.3 % (0.0-3.0); HEMATOCRIT 25.9 % (37.0-47.0); HEMOGLOBIN 8.2 gm/dL (12.0-15.0); LYMPHOCYTES 15.4 % (24.0-44.0); MCH 27.5 pg (26.0-34.0); MCHC 31.8 g/dL (28.0-37.0); MCV 86.3 fL (80.0-100.0); MONOCYTES 8.8 % (1.0-8.0); PLATELET COUNT 157 thou/uL (150-400); POLYS 74.2 % (36.0-66.0); RDW 15.9 % (10.5-14.5); WBC 6.1 thou/uL (4.0-11.0)
[2018-02-06 04:48] LABS: CALCIUM 8.3 mg/dL (8.5-10.1); CREATININE 0.7 mg/dL (0.6-1.0); POTASSIUM 3.3 mmol/L (3.5-5.1)
[2018-02-06 06:08] LABS: OBSERVED RETIC COUNT 2.2 % (0.6-2.6)
[2018-02-06 06:32] LABS: % SATURATION 11 % (20-39); IRON 27 ug/dL (50-170); TIBC 251 ug/dL (250-450)
[2018-02-06 07:01] VITALS: BP 162/51
[2018-02-06 08:35] LABS: FOLIC ACID 39.3 ng/mL (8.6-58.9)
[2018-02-06 13:47] VITALS: BP 188/58
[2018-02-06 19:07] VITALS: BP 194/75
[2018-02-07] VITALS: BP 177/53
[2018-02-07 04:00] VITALS: BP 164/46
[2018-02-07 07:08] VITALS: BP 160/51
[2018-02-07 14:14] VITALS: BP 141/53
[2018-02-07 19:37] VITALS: BP 151/57
[2018-02-08 03:48] VITALS: BP 160/56
[2018-02-08 08:22] VITALS: BP 168/58
[2018-02-08 16:59] LABS: URINE BILIRUBIN NEGATIVE (Negative); URINE BLOOD TRACE (Negative); URINE CLARITY SL CLOUDY; URINE COLOR YELLOW; URINE GLUCOSE-RANDOM* NEGATIVE (Negative); URINE KETONES NEGATIVE (Negative); URINE LEUKOCYTES TRACE (Negative); URINE NITRITE NEGATIVE (Negative); URINE PROTEIN (DIPSTICK) NEGATIVE (Negative); URINE SPECIFIC GRAVITY 1.025 (1.005-1.035); URINE UROBILINOGEN 0.2 E.U./dl (0.2-1.0)
[2018-02-08 17:50] VITALS: BP 164/67
[2018-02-08 19:12] VITALS: BP 159/52
[2018-02-08 23:46] VITALS: BP 159/52
[2018-02-09 06:12] VITALS: BP 158/51
[2018-02-09 15:00] VITALS: BP 165/61
[2018-02-09 19:15] VITALS: BP 167/63
[2018-02-10 04:27] VITALS: BP 181/50
[2018-02-10 07:48] VITALS: BP 174/65
[2018-02-10] MEDS ORDERED: MIRALAX17 GM PO (10:23)
[2018-02-10] MEDS ORDERED: VOLTAREN GEL 1100 G1 TOP (10:23)
[2018-02-10] MEDS ORDERED: HYDROCODONE-AP1 EAC6 PO (10:23)
== END 2018-02-10 13:03 | DRG 388 ==
LOC: ER 09:46 → EROBS 12:12 → 4W 12:12
PROVIDERS: Hospitalist; Nurse Practitioner
PROC: 0DB68ZX Excision of Stomach, Via Natural or Artificial Opening Endoscopic, Diagnostic (ICD-10-PCS; principal; 2018-02-08)
PROC: 0DB58ZX Excision of Esophagus, Via Natural or Artificial Opening Endoscopic, Diagnostic (ICD-10-PCS; principal; 2018-02-08)
DX: K56.690 Other partial intestinal obstruction (principal); E43 Unspecified severe protein-calorie malnutrition; K76.6 Portal hypertension; I10 Essential (primary) hypertension; I27.20 Pulmonary hypertension, unspecified; K31.819 Angiodysplasia of stomach and duodenum without bleeding; I25.10 Atherosclerotic heart disease of native coronary artery without angina pectoris; H40.9 Unspecified glaucoma; G43.909 Migraine, unspecified, not intractable, without status migrainosus; F03.90 Unspecified dementia, unspecified severity, without behavioral disturbance, psychotic disturbance, mood disturbance, and anxiety; M34.9 Systemic sclerosis, unspecified; D50.9 Iron deficiency anemia, unspecified; M34.1 CR(E)ST syndrome; R07.89 Other chest pain; M17.12 Unilateral primary osteoarthritis, left knee; M25.462 Effusion, left knee; I08.3 Combined rheumatic disorders of mitral, aortic and tricuspid valves; E87.6 Hypokalemia; E03.9 Hypothyroidism, unspecified; K21.9 Gastro-esophageal reflux disease without esophagitis; I73.00 Raynaud's syndrome without gangrene; Z86.73 Personal history of transient ischemic attack (TIA), and cerebral infarction without residual deficits; Z95.5 Presence of coronary angioplasty implant and graft; Z90.49 Acquired absence of other specified parts of digestive tract; Z90.710 Acquired absence of both cervix and uterus; Z79.899 Other long term (current) drug therapy
CPT/HCPCS: 10045; 62110; 62900; 70005

== ENCOUNTER 2018-11-30 20:34 | Emergency (ER) | payer OTHER ==
[~2018-11-30] VITALS: Ht 165.1 cm; Wt 52.2 kg
[~2018-11-30 20:34] MED LIST changes: +HYDROCODONE-AP1 EAC6 PO; +MIRALAX17 GM PO; +VOLTAREN GEL 1100 G1 TOP
[2018-11-30 20:54] LABS: ABSOLUTE NEUTROPHILS 5.2 thou/uL (1.4-8.2); BASOPHILS 0.6 % (0.0-2.0); EOSINOPHILS 1.5 % (0.0-3.0); HEMATOCRIT 30.2 % (37.0-47.0); HEMOGLOBIN 10.4 gm/dL (12.0-15.0); LYMPHOCYTES 19.9 % (24.0-44.0); MCH 33.2 pg (26.0-34.0); MCHC 34.3 g/dL (28.0-37.0); MCV 96.9 fL (80.0-100.0); MONOCYTES 8.4 % (1.0-8.0); PLATELET COUNT 180 thou/uL (150-400); POLYS 69.6 % (36.0-66.0); RBC 3.12 mil/uL (4.20-5.00); RDW 14.7 % (10.5-14.5); WBC 7.5 thou/uL (4.0-11.0)
[2018-11-30 21:03] LABS: ANION GAP 10 mmol/L (7-16); BUN 21 mg/dL (7-18); CALCIUM 8.8 mg/dL (8.5-10.1); CHLORIDE 102 mmol/L (98-107); CO2 23 mmol/L (21-32); CREATININE 1.2 mg/dL (0.6-1.0); GLUCOSE 112 mg/dL (74-106); POTASSIUM 3.9 mmol/L (3.5-5.1); SODIUM 135 mmol/L (136-145)
[2018-11-30 21:13] LABS: ALBUMIN 3.8 g/dL (3.4-5.0); SGOT 20 U/L (15-37); SGPT 19 U/L (30-65); TOTAL BILIRUBIN 0.2 mg/dL (<0.1-1.0); TOTAL PROTEIN 7.1 g/dL (6.4-8.2); TROPONIN-I <0.06 ng/mL (<0.06)
[2018-11-30] MEDS ORDERED: ZOFRAN ODT4 MG DISSOLVE (21:14)
[2018-11-30 21:38] LABS: URINE BILIRUBIN NEGATIVE (Negative); URINE BLOOD TRACE (Negative); URINE CLARITY SL CLOUDY; URINE COLOR YELLOW; URINE GLUCOSE-RANDOM* NEGATIVE (Negative); URINE KETONES NEGATIVE (Negative); URINE NITRITE-REFLEX NEGATIVE (Negative); URINE PROTEIN (DIPSTICK) NEGATIVE (Negative); URINE UROBILINOGEN 0.2 E.U./dl (0.2-1.0)
[2018-11-30 21:40] LABS: URINE LEUKOCYTES-REFLEX 1+ (Negative)
[2018-11-30 21:54] LABS: SQUAMOUS 4-10 Moderate /LPF (0-3)
[2018-11-30 21:55] LABS: HYALINE CASTS 0-3 Few /LPF (None Seen); MUCUS 0-3 Light strn/LPF (None Seen); URINE RBC 0-2 Rare /HPF (0-2); URINE WBC-REFLEX 6-15 Few /HPF (0-5)
[2018-11-30 21:56] LABS: CRYSTALS None Seen /LPF (None Seen)
[2018-11-30 22:10] VITALS: BP 121/75
--- NOTE | 2018-12-03 09:01 | EKG ---
[place] [address] [email or web address] [address] ELECTROCARDIOGRAM REPORT Name: NEREYDA AZUL [id number] Admission: 11/30/18 Attend Phys: Discharge: 11/30/18 Date of : 38 Report #: [id number] THIS REPORT FOR: //name// [facility] Test Date: 2018-11-30 Test Time: 20:43:14 Pat Name: NEREYDA AZUL Department: Room: Gender: F Headlight Adjuster: STOLED : 1940 Requested By: Bakari Torres Order Number: [id number] MD: Chidi Reyes Measurements Intervals [place] Rate: 57 P: -1 NV: 181 QRS: 39 QRSD: 84 T: 82 QT: 458 QTc: 446 Interpretive Statements Sinus rhythm Borderline ST depression, diffuse leads Compared to ECG 02/04/2018 15:47:48 ST (T wave) deviation now present Electronically Signed On 12-03-2018 9:01:30 CDT by Chidi Reyes [email or web address] <ELECTRONICALLY SIGNED> By: Chidi Reyes MD 12/03/18 09 42 42 Chidi Reyes MD /ROXANNE
== END 2018-11-30 23:04 | disposition home or self-care (01) ==
LOC: ER 20:34
PROVIDERS: Emergency Medicine
DX: R55 Syncope and collapse (principal); R11.2 Nausea with vomiting, unspecified; I10 Essential (primary) hypertension; K21.9 Gastro-esophageal reflux disease without esophagitis; G43.909 Migraine, unspecified, not intractable, without status migrainosus; I25.10 Atherosclerotic heart disease of native coronary artery without angina pectoris; Z95.2 Presence of prosthetic heart valve; Z90.49 Acquired absence of other specified parts of digestive tract; Z90.710 Acquired absence of both cervix and uterus; Z86.73 Personal history of transient ischemic attack (TIA), and cerebral infarction without residual deficits

== ENCOUNTER 2019-04-02 18:45 | Emergency (ER) | payer OTHER ==
[~2019-04-02] VITALS: Ht 165.1 cm; Wt 51.7 kg
[~2019-04-02 18:45] MED LIST changes: +ZOFRAN ODT4 MG DISSOLVE
[2019-04-02 19:53] LABS: URINE BILIRUBIN NEGATIVE (Negative); URINE BLOOD TRACE (Negative); URINE CLARITY CLEAR; URINE COLOR YELLOW; URINE GLUCOSE-RANDOM* NEGATIVE (Negative); URINE KETONES NEGATIVE (Negative); URINE LEUKOCYTES-REFLEX 1+ (Negative); URINE NITRITE-REFLEX NEGATIVE (Negative); URINE PROTEIN (DIPSTICK) NEGATIVE (Negative); URINE SPECIFIC GRAVITY 1.025 (1.005-1.035); URINE UROBILINOGEN 0.2 E.U./dl (0.2-1.0)
[2019-04-02 19:57] LABS: ANION GAP 14 mmol/L (7-16); BUN 30 mg/dL (7-18); CHLORIDE 105 mmol/L (98-107); CO2 18 mmol/L (21-32); CREATININE 1.3 mg/dL (0.6-1.0); GLUCOSE 106 mg/dL (74-106); POTASSIUM 4.2 mmol/L (3.5-5.1); SODIUM 137 mmol/L (136-145)
[2019-04-02 19:58] LABS: ABSOLUTE NEUTROPHILS 5.5 thou/uL (1.4-8.2); BASOPHILS 0.7 % (0.0-2.0); EOSINOPHILS 0.7 % (0.0-3.0); HEMATOCRIT 27.2 % (37.0-47.0); LYMPHOCYTES 18.8 % (24.0-44.0); MCH 30.1 pg (26.0-34.0); MCV 91.3 fL (80.0-100.0); MONOCYTES 8.3 % (1.0-8.0); PLATELET COUNT 198 thou/uL (150-400); POLYS 71.5 % (36.0-66.0); RBC 2.98 mil/uL (4.20-5.00); RDW 14.5 % (10.5-14.5); WBC 7.7 thou/uL (4.0-11.0)
[2019-04-02 20:03] LABS: ALBUMIN 3.7 g/dL (3.4-5.0); DIRECT BILIRUBIN < 0.1 mg/dL (<0.1-0.2); LIPASE 90 U/L (73-393); SGOT 18 U/L (15-37); SGPT 16 U/L (30-65); TOTAL BILIRUBIN 0.2 mg/dL (<0.1-1.0)
[2019-04-02 20:04] LABS: BACTERIA-REFLEX 1-9 Few /HPF (None Seen); CASTS None Seen /LPF (None Seen); CRYSTALS None Seen /LPF (None Seen); SQUAMOUS 0-3 Few /LPF (0-3); URINE RBC 0-2 Rare /HPF (0-2); URINE WBC-REFLEX 6-15 Few /HPF (0-5)
[2019-04-02 22:13] VITALS: BP 129/42
== END 2019-04-02 22:14 | disposition home or self-care (01) ==
LOC: ER 18:45
PROVIDERS: Emergency Medicine
DX: R10.13 Epigastric pain (principal); R53.1 Weakness; I10 Essential (primary) hypertension; I25.10 Atherosclerotic heart disease of native coronary artery without angina pectoris; E03.9 Hypothyroidism, unspecified; K21.9 Gastro-esophageal reflux disease without esophagitis; G43.909 Migraine, unspecified, not intractable, without status migrainosus; Z86.73 Personal history of transient ischemic attack (TIA), and cerebral infarction without residual deficits; Z90.49 Acquired absence of other specified parts of digestive tract; Z90.710 Acquired absence of both cervix and uterus; Z95.5 Presence of coronary angioplasty implant and graft

== ENCOUNTER → 2019-05-09 | Outpatient (CLI) | payer OTHER | LOC: SJCVCIMAG 10:36 | DX: I65.23 Occlusion and stenosis of bilateral carotid arteries (principal); E04.2 Nontoxic multinodular goiter; R00.1 Bradycardia, unspecified; I25.10 Atherosclerotic heart disease of native coronary artery without angina pectoris; M34.9 Systemic sclerosis, unspecified; E78.00 Pure hypercholesterolemia, unspecified; I27.20 Pulmonary hypertension, unspecified; E03.9 Hypothyroidism, unspecified; I73.9 Peripheral vascular disease, unspecified; Z90.710 Acquired absence of both cervix and uterus; Z88.1 Allergy status to other antibiotic agents; Z88.8 Allergy status to other drugs, medicaments and biological substances; Z98.890 Other specified postprocedural states; Z95.5 Presence of coronary angioplasty implant and graft ==

== ENCOUNTER 2019-08-02 12:09 | Emergency (ER) | payer OTHER ==
[~2019-08-02] VITALS: Ht 167.6 cm; Wt 63.5 kg
[2019-08-02 12:33] LABS: ABSOLUTE NEUTROPHILS 5.1 thou/uL (1.4-8.2); BASOPHILS 0.8 % (0.0-2.0); EOSINOPHILS 1.3 % (0.0-3.0); HEMATOCRIT 26.6 % (37.0-47.0); HEMOGLOBIN 8.7 gm/dL (12.0-15.0); LYMPHOCYTES 15.3 % (24.0-44.0); MCH 28.4 pg (26.0-34.0); MCHC 32.7 g/dL (28.0-37.0); MONOCYTES 8.8 % (1.0-8.0); PLATELET COUNT 205 thou/uL (150-400); POLYS 73.8 % (36.0-66.0); RBC 3.06 mil/uL (4.20-5.00); RDW 15.2 % (10.5-14.5); WBC 6.9 thou/uL (4.0-11.0)
[2019-08-02 12:42] LABS: CALCIUM 8.6 mg/dL (8.5-10.1); CREATININE 1.3 mg/dL (0.6-1.0); MAGNESIUM 2.1 mg/dL (1.8-2.4); POTASSIUM 4.2 mmol/L (3.5-5.1)
[2019-08-02 13:04] LABS: URINE BILIRUBIN NEGATIVE (Negative); URINE BLOOD NEGATIVE (Negative); URINE CLARITY CLEAR; URINE COLOR YELLOW; URINE GLUCOSE-RANDOM* NEGATIVE (Negative); URINE KETONES NEGATIVE (Negative); URINE LEUKOCYTES-REFLEX NEGATIVE (Negative); URINE NITRITE-REFLEX POSITIVE (Negative); URINE PROTEIN (DIPSTICK) NEGATIVE (Negative); URINE SPECIFIC GRAVITY 1.025 (1.005-1.035); URINE UROBILINOGEN 0.2 E.U./dl (0.2-1.0)
[2019-08-02 13:07] LABS: SQUAMOUS 0-3 Few /LPF (0-3)
[2019-08-02 13:08] LABS: BACTERIA-REFLEX >30 Many /HPF (None Seen); CASTS None Seen /LPF (None Seen); URINE WBC-REFLEX 6-15 Few /HPF (0-5)
[2019-08-02 13:09] LABS: CRYSTALS None Seen /LPF (None Seen); URINE RBC None Seen /HPF (0-2)
[2019-08-02] MEDS ORDERED: KEFLEX500 M1 PO (13:58)
[2019-08-02 14:38] VITALS: BP 119/41
--- NOTE | 2019-08-04 08:57 | EKG ---
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
== END 2019-08-02 14:38 | disposition home or self-care (01) ==
LOC: ER 12:09
PROVIDERS: Emergency Medicine
DX: M54.2 Cervicalgia (principal); R53.1 Weakness; R11.2 Nausea with vomiting, unspecified; R53.83 Other fatigue; E03.9 Hypothyroidism, unspecified; K21.9 Gastro-esophageal reflux disease without esophagitis; I25.10 Atherosclerotic heart disease of native coronary artery without angina pectoris; I10 Essential (primary) hypertension; Z86.73 Personal history of transient ischemic attack (TIA), and cerebral infarction without residual deficits; Z79.899 Other long term (current) drug therapy; W18.39XA Other fall on same level, initial encounter; Y93.89 Activity, other specified; Y92.89 Other specified places as the place of occurrence of the external cause; Y99.8 Other external cause status

== ENCOUNTER → 2019-09-23 | Outpatient (CLI) | payer OTHER ==
[~2019-09-23] MED LIST changes: +KEFLEX500 M1 PO
== END ==
LOC: SJCVC 12:57
PROVIDERS: ATTEND Internal Medicine Cardiovascular Disease
DX: I25.10 Atherosclerotic heart disease of native coronary artery without angina pectoris (principal); I35.0 Nonrheumatic aortic (valve) stenosis; I27.20 Pulmonary hypertension, unspecified; E78.00 Pure hypercholesterolemia, unspecified; I10 Essential (primary) hypertension; M34.9 Systemic sclerosis, unspecified; R94.31 Abnormal electrocardiogram [ECG] [EKG]; E03.9 Hypothyroidism, unspecified; Z82.49 Family history of ischemic heart disease and other diseases of the circulatory system; Z98.890 Other specified postprocedural states; Z79.82 Long term (current) use of aspirin; Z79.899 Other long term (current) drug therapy

== ENCOUNTER → 2019-10-01 | Outpatient (CLI) | payer OTHER | LOC: SJCVCIMAG 10:18 | PROVIDERS: ATTEND Internal Medicine Cardiovascular Disease | DX: I25.10 Atherosclerotic heart disease of native coronary artery without angina pectoris (principal) ==

== ENCOUNTER → 2019-11-24 | Outpatient (CLI) | payer OTHER | LOC: SJCVCINTER 11:41 | PROVIDERS: ATTEND Internal Medicine Cardiovascular Disease | DX: R94.31 Abnormal electrocardiogram [ECG] [EKG] (principal); I25.10 Atherosclerotic heart disease of native coronary artery without angina pectoris; I10 Essential (primary) hypertension; E78.00 Pure hypercholesterolemia, unspecified; I35.0 Nonrheumatic aortic (valve) stenosis; I27.20 Pulmonary hypertension, unspecified; M34.9 Systemic sclerosis, unspecified; Z98.890 Other specified postprocedural states ==

== ENCOUNTER → 2020-03-16 | Outpatient (CLI) | payer OTHER | LOC: SJCVCIMAG 10:55 | PROVIDERS: ATTEND Internal Medicine Cardiovascular Disease | DX: I08.8 Other rheumatic multiple valve diseases (principal); I25.10 Atherosclerotic heart disease of native coronary artery without angina pectoris; I10 Essential (primary) hypertension; E78.00 Pure hypercholesterolemia, unspecified; M34.9 Systemic sclerosis, unspecified; I65.23 Occlusion and stenosis of bilateral carotid arteries; I27.20 Pulmonary hypertension, unspecified; Z79.899 Other long term (current) drug therapy ==

== ENCOUNTER → 2020-06-24 | Outpatient (CLI) | payer OTHER | LOC: SJCVC 12:59 | PROVIDERS: ATTEND Internal Medicine Cardiovascular Disease | DX: R94.31 Abnormal electrocardiogram [ECG] [EKG] (principal); I35.0 Nonrheumatic aortic (valve) stenosis; I25.10 Atherosclerotic heart disease of native coronary artery without angina pectoris; I65.23 Occlusion and stenosis of bilateral carotid arteries; I10 Essential (primary) hypertension; E78.00 Pure hypercholesterolemia, unspecified; M54.9 Dorsalgia, unspecified; I27.20 Pulmonary hypertension, unspecified; E03.9 Hypothyroidism, unspecified; Z98.890 Other specified postprocedural states; Z72.89 Other problems related to lifestyle; Z79.899 Other long term (current) drug therapy; Z88.2 Allergy status to sulfonamides; Z88.8 Allergy status to other drugs, medicaments and biological substances ==

== ENCOUNTER → 2020-10-26 | Outpatient (CLI) | payer OTHER | LOC: SJCVCIMAG 07:26 | PROVIDERS: ATTEND Internal Medicine Cardiovascular Disease | DX: R94.31 Abnormal electrocardiogram [ECG] [EKG] (principal); I08.8 Other rheumatic multiple valve diseases; I11.9 Hypertensive heart disease without heart failure; I48.91 Unspecified atrial fibrillation; I25.10 Atherosclerotic heart disease of native coronary artery without angina pectoris; I65.23 Occlusion and stenosis of bilateral carotid arteries; E78.00 Pure hypercholesterolemia, unspecified; M34.9 Systemic sclerosis, unspecified; I35.0 Nonrheumatic aortic (valve) stenosis; I27.20 Pulmonary hypertension, unspecified; R00.1 Bradycardia, unspecified; Z98.890 Other specified postprocedural states; Z79.899 Other long term (current) drug therapy; Z72.89 Other problems related to lifestyle; Z88.2 Allergy status to sulfonamides; Z88.8 Allergy status to other drugs, medicaments and biological substances; Z88.1 Allergy status to other antibiotic agents ==

== ENCOUNTER → 2021-05-03 | Outpatient (CLI) | payer OTHER | END | disposition home or self-care (01) | LOC: SJCVC 13:21 | PROVIDERS: ATTEND Internal Medicine Cardiovascular Disease | DX: I25.10 Atherosclerotic heart disease of native coronary artery without angina pectoris (principal); I10 Essential (primary) hypertension; E78.00 Pure hypercholesterolemia, unspecified; I34.0 Nonrheumatic mitral (valve) insufficiency; M34.9 Systemic sclerosis, unspecified; I35.0 Nonrheumatic aortic (valve) stenosis; I27.20 Pulmonary hypertension, unspecified; I65.23 Occlusion and stenosis of bilateral carotid arteries; I73.9 Peripheral vascular disease, unspecified; Z90.710 Acquired absence of both cervix and uterus; Z95.5 Presence of coronary angioplasty implant and graft; Z79.899 Other long term (current) drug therapy; Z98.890 Other specified postprocedural states ==

== ENCOUNTER 2021-05-07 05:31 | Emergency (ER) | payer OTHER ==
[~2021-05-07] VITALS: Ht 160 cm; Wt 54.4 kg
[2021-05-07 06:12] LABS: ABSOLUTE NEUTROPHILS 5.2 thou/uL (1.4-8.2); BASOPHILS 0.6 % (0.0-2.0); EOSINOPHILS 2.1 % (0.0-3.0); HEMOGLOBIN 10.3 gm/dL (12.0-15.0); LYMPHOCYTES 13.4 % (24.0-44.0); MCH 34.5 pg (26.0-34.0); MCHC 34.3 g/dL (28.0-37.0); MCV 100.6 fL (80.0-100.0); MONOCYTES 9.8 % (1.0-8.0); PLATELET COUNT 147 thou/uL (150-400); POLYS 74.1 % (36.0-66.0); RBC 2.98 mil/uL (4.20-5.00); RDW 13.3 % (10.5-14.5)
[2021-05-07 06:22] LABS: CALCIUM 8.4 mg/dL (8.5-10.1); CREATININE 1.6 mg/dL (0.6-1.0); POTASSIUM 4.7 mmol/L (3.5-5.1)
[2021-05-07 06:30] LABS: ALBUMIN 3.5 g/dL (3.4-5.0); TOTAL BILIRUBIN 0.3 mg/dL (0.2-1.0); TOTAL PROTEIN 6.1 g/dL (6.4-8.2)
[2021-05-07 07:01] LABS: URINE BILIRUBIN NEGATIVE (Negative); URINE BLOOD NEGATIVE (Negative); URINE CLARITY CLEAR; URINE COLOR YELLOW; URINE GLUCOSE-RANDOM* NEGATIVE (Negative); URINE KETONES NEGATIVE (Negative); URINE LEUKOCYTES-REFLEX TRACE (Negative); URINE NITRITE-REFLEX POSITIVE (Negative); URINE PROTEIN (DIPSTICK) NEGATIVE (Negative); URINE UROBILINOGEN 0.2 E.U./dl (0.2-1.0)
[2021-05-07 07:26] VITALS: BP 175/50
[2021-05-07 07:41] LABS: BACTERIA-REFLEX >30 Many /HPF (None Seen); CASTS None Seen /LPF (None Seen); CRYSTALS None Seen /LPF (None Seen); SQUAMOUS 0-3 Few /LPF (0-3); URINE RBC 1-2 Rare /HPF (NONE SEEN); URINE WBC-REFLEX 0-5 Rare /HPF (0-5)
[2021-05-07] MEDS ORDERED: TRAMADOL 50 MG50 MG PO ×2 (09:28→09:44)
[2021-05-07] MEDS ORDERED: CEPHALEXIN500 MG PO ×2 (09:28→09:44)
[2021-05-07] MEDS ORDERED: MACROBID 100 M100 M1 PO (10:05)
--- NOTE | 2021-05-09 08:03 | EKG ---
[address] [place] [place] [address] ELECTROCARDIOGRAM REPORT Name: NEREYDA AZUL [id number] Admission: 05/07/21 Attend Phys: Discharge: 05/07/21 Date of : 38 Report #: [id number] [facility] ED Test Date: 2021-05-07 Test Time: 10:04:16 Pat Name: NEREYDA AZUL Department: Room: Gender: F Butt Trimmer: JEANE : 1940 Requested By: Rosemary Macias Order Number: [id number] MD: Wolf Santos Measurements Intervals [place] Rate: 66 P: 68 TX: 168 QRS: 42 QRSD: 92 T: 87 QT: 427 QTc: 448 Interpretive Statements Sinus rhythm No significant abnormality Artifact in multiple lead(s) Compared to ECG 08/02/2019 12:19:42 No significant change was found Electronically Signed On 05-09-2021 8:03:24 WATER VALVE REPAIRER by Wolf Santos [email or web address] <ELECTRONICALLY SIGNED> By: Wolf Santos MD, [facility] 05/09/21 0803 1004 1004 Wolf Santos MD, FACC /EPI
[2021-05-10] MEDS ORDERED: LEVOFLOXACIN750 MG PO (11:13)
== END 2021-05-07 09:52 | disposition home or self-care (01) ==
LOC: ER 05:31
PROVIDERS: Emergency Medicine
DX: M25.562 Pain in left knee (principal); I10 Essential (primary) hypertension; E03.9 Hypothyroidism, unspecified; K21.9 Gastro-esophageal reflux disease without esophagitis; I25.10 Atherosclerotic heart disease of native coronary artery without angina pectoris; Z86.711 Personal history of pulmonary embolism; Z90.49 Acquired absence of other specified parts of digestive tract; Z90.710 Acquired absence of both cervix and uterus; Z79.899 Other long term (current) drug therapy; Z79.891 Long term (current) use of opiate analgesic; Z88.1 Allergy status to other antibiotic agents; W18.30XA Fall on same level, unspecified, initial encounter; Y93.89 Activity, other specified; Y92.89 Other specified places as the place of occurrence of the external cause; Y99.8 Other external cause status